=== PATIENT | male | born 1940 | race Caucasian/White ===

== ENCOUNTER 2017-06-23 15:12 | Emergency (ER) | payer OTHER ==
[2017-06-23] MEDS ORDERED: IMODIUM2 MG PO (15:31)
[2017-06-23] MEDS ORDERED: NORVASC5 M1 PO (15:32)
[2017-06-23] MEDS ORDERED: GLIPIZIDE ER2.5 MG PO (15:33)
[2017-06-23] MEDS ORDERED: LISINOPRIL2.5 MG PO (15:34)
[2017-06-23] MEDS ORDERED: TERAZOSIN1 MG PO (15:35)
[2017-06-23] MEDS ORDERED: COCONUT OIL O1000 MG PO (15:37)
[2017-06-23] MEDS ORDERED: GLUCOSAMINE1500 M1 PO (15:39)
[2017-06-23] MEDS ORDERED: VITAMIN E400 UNI2 PO (15:40)
[2017-06-23] MEDS ORDERED: VITAMIN B-12500 MCG PO (15:41)
[2017-06-23] MEDS ORDERED: VITAMIN D31000 UNI1 PO (15:42)
[2017-06-23] MEDS ORDERED: BILBERRY1000 MG PO (15:43)
[2017-06-23] MEDS ORDERED: [UNRECOGNIZED DRUG - OTHER] PO (15:43)
[2017-06-23] MEDS ORDERED: ROCALTROL0.25 MCG PO (15:44)
[2017-06-23] MEDS ORDERED: FOLIC ACID1 MG PO (15:45)
[2017-06-23] MEDS ORDERED: CALCITRIOL0.25 MC1 PO (15:46)
[2017-06-23] MEDS ORDERED: VITAMIN C500 M1 PO (15:48)
[2017-06-23] MEDS ORDERED: FERRAPLUS 90 PO (15:48)
[2017-06-23 16:32] LABS: HEMATOCRIT 39.2 % (39.0-50.0); HEMOGLOBIN 13.1 g/dl (14.0-18.0); IMMATURE GRANULOCYTES 0.5 % (0.0-1.0); MEAN CELL VOLUME 93.3 fL CALC (80.0-100.0); MEAN CORPUSCULAR HGB 31.2 pG CALC (26.0-32.0); MEAN CORPUSCULAR HGB CONC 33.4 g/L CALC (32.0-36.0); NEUT# 4.29 thou/uL (1.82-7.42); RED BLOOD COUNT 4.2 mill/uL (4.70-6.10); RED CELL DISTRI WIDTH 13.4 % (11.5-15.5)
[2017-06-23 16:51] LABS: ALBUMIN 4.3 g/dL (3.2-5.0); BILIRUBIN, TOTAL 0.4 mg/dL (0.0-1.4); CALCIUM 9.7 mg/dL (8.4-10.2); CREATININE 1.9 mg/dL (0.7-1.3); POTASSIUM 4.5 mmol/l (3.5-5.1); TOTAL PROTEIN 6.9 g/dL (6.3-8.2)
[2017-06-23] MEDS ORDERED: VALACYCLOVIR H500 MG PO (17:17)
[2017-06-23] MEDS ORDERED: RANITIDINE150 M1 PO (17:22)
[2017-06-23 17:38] VITALS: BP 126/77
== END 2017-06-23 17:38 | disposition home or self-care (01) | DRG 596 ==
LOC: ED 15:12
PROVIDERS: Family Medicine
DX: B02.9 Zoster without complications (principal); M54.9 Dorsalgia, unspecified; R10.9 Unspecified abdominal pain

== ENCOUNTER 2019-10-25 | Emergency (ER) | payer OTHER ==
[~2019-10-25] MED LIST: BILBERRY1000 MG PO; CALCITRIOL0.25 MC1 PO; COCONUT OIL O1000 MG PO; FERRAPLUS 90 PO; FOLIC ACID1 MG PO; GLIPIZIDE ER2.5 MG PO; GLUCOSAMINE1500 M1 PO; IMODIUM2 MG PO; LISINOPRIL2.5 MG PO; NORVASC5 M1 PO; RANITIDINE150 M1 PO; ROCALTROL0.25 MCG PO; TERAZOSIN1 MG PO; VALACYCLOVIR H500 MG PO; VITAMIN B-12500 MCG PO; VITAMIN C500 M1 PO; VITAMIN D31000 UNI1 PO; VITAMIN E400 UNI2 PO; [UNRECOGNIZED DRUG - OTHER] PO
== END 2019-10-25 21:58 | disposition home or self-care (01) | DRG 605 ==
DX: S61.411A Laceration without foreign body of right hand, initial encounter (principal); E11.9 Type 2 diabetes mellitus without complications; I10 Essential (primary) hypertension; W26.9XXA Contact with unspecified sharp object(s), initial encounter; Z79.84 Long term (current) use of oral hypoglycemic drugs

== ENCOUNTER 2024-03-21 14:03 | Emergency (ER) | payer OTHER ==
[2024-03-21] VITALS (14 sets, daily range): BP systolic 121–173; BP diastolic 60–106
[~2024-03-21] VITALS: Ht 175.3 cm; Wt 75.7 kg
[~2024-03-21 14:03] MED LIST changes: +ALFUZOSIN HCL E10 MG PO; +ALLERGY RE50 MCG/ACT; +AMLODIPINE BES2.5 MG PO; +B-2100 MG PO; +BENZONATATE150 MG PO; +GLUCOTROL XL2.5 MG PO; +LANTUS100 UNIT SC; +OMEPRAZOLE DR40 MG PO; +PLAVIX75 MG PO; +PROSCAR5 MG PO; +SODIUM BICARBI650 MG PO; +WEGOVY0.25 MG SC
[2024-03-21] MEDS ORDERED: KETOROLAC TROMETHAMINE 15 MG/ML SDV IV ONE (15:50)
[2024-03-21] MEDS ORDERED: hydrALAZINE HCL 20 MG/ML VIAL(1 ML) IV ONE (15:50)
[2024-03-21 15:51] LABS: BASO% 0.3 % (0-3); EOS% 1.5 % (0-8); HEMATOCRIT 32.8 % (39.0-50.0); HEMOGLOBIN 10.5 g/dl (14.0-18.0); IMMATURE GRANULOCYTES 1.2 % (0.0-5.0); LYMPH% 6.1 % (15-41); MEAN CELL VOLUME 95.9 fL CALC (80.0-100.0); MEAN CORPUSCULAR HGB 30.7 pG CALC (26.0-32.0); MONO% 5.8 % (2-13); NEUT# 11.12 thou/uL (1.82-7.42); NEUT% 85.1 % (42-76); RED BLOOD COUNT 3.42 mill/uL (4.70-6.10); RED CELL DISTRI WIDTH 14.4 % (11.5-15.5)
[2024-03-21] MEDS ORDERED: ACETAMINOPHEN 325 MG/TAB PO ONE (15:55)
[2024-03-21 16:02] LABS: CREATININE 1.9 mg/dL (0.7-1.3); POTASSIUM 4.5 mmol/l (3.5-5.1)
[2024-03-21 16:07] LABS: INTERNATIONAL NORMALIZED RATIO 1.1 RATIO (0.7-1.3)
[2024-03-21 16:09] LABS: ALBUMIN 4.2 g/dL (3.2-5.0); BILIRUBIN, TOTAL 1.3 mg/dL (0.2-1.3); PROTHROMBIN TIME 10.3 SECONDS (9.0-12.5); TOTAL PROTEIN 7.1 g/dL (6.3-8.2)
== END 2024-03-21 17:15 | disposition home or self-care (01) | DRG 103 ==
LOC: ED 14:03
PROVIDERS: Family Medicine; Nurse Practitioner
DX: R51.9 Headache, unspecified (principal)